=== PATIENT | male | born 1960 ===

== ENCOUNTER 2017-02-23 14:33 | Emergency (ER) | payer BC, OTHER ==
[2017-02-23 14:37] VITALS: BMI 21.6
[2017-02-23 14:41] VITALS: O2SAT 97
[2017-02-23] MEDS ORDERED: Sodium Chloride 0.9% 1,000 ML IV STA (14:57)
[2017-02-23] MEDS ORDERED: Morphine 2 mg/ml ISec IVP STA (14:57)
[2017-02-23 15:07] VITALS: TEMP 98.9
--- NOTE | 2017-02-23 15:08 | ED PDOC ---
Arrival/HPI - General Chief Complaint: Back Pain Time Seen by Provider: 02/23/17 14:42 Historian: Patient - History of Present Illness Narrative History of Present Illness (Text): 02/23/17 15:02 Shalom Alberts is a 56 year old male, with a history of nephrectomy, presents to the emergency department complaining of right inguinal hernia and pain associated to the area. States pain is worsened with movement and states he "can 't hold up his upper body." States he was evaluated for these complaints before and was informed he needed surgical repair. Patient unable to get surgery due to insurance issue. Also states he had 1 episode of nbnb vomit today morning. Denies any fever, chills, headache, dizziness, cheat pain, shortness of breath, abdominal pain, urinary symptoms, or any other complaints at this time. The patient was previously evaluated by Dr. Patterson and told he needs surgery. Time/Duration: Other (Tuesday ) Symptom Course: Worsening Severity Level: Mild Activities at Onset: Light Context: Home Past Medical History - Provider Review Nursing Documentation Reviewed: Yes - Infectious Disease Hx of Infectious Diseases: None - Cardiac Hx Cardiac Disorders: No - Pulmonary Hx Respiratory Disorders: Yes Hx Chronic Obstructive Pulmonary Disease (COPD): Yes - Neurological Hx Neurological Disorder: No - HEENT Hx HEENT Disorder: No - Renal Hx Renal Disorder: Yes Other/Comment: Colapsed Kidney. Right kidney removed. - Psychiatric Hx Anxiety: Yes Hx Substance Use: No - Surgical History Other/Comment: Right kidney removal. - Anesthesia Hx Anesthesia: Yes Hx Anesthesia Reactions: No Family/Social History - Physician Review Nursing Documentation Reviewed: Yes Family/Social History: No Known Family HX Smoking Status: Heavy Smoker > 10 Cigarettes Daily Hx Alcohol Use: No Hx Substance Use: No Allergies/Home Meds Allergies/Adverse Reactions: Allergies No Known Allergies Allergy (Verified 02/23/17 14:37) Review of Systems - Physician Review All systems were reviewed & negative as marked: Yes - Review of Systems Constitutional: Normal. absent: Fatigue, Fevers Eyes: Normal ENT: Normal Respiratory: Normal. absent: SOB, Cough, Sputum Cardiovascular: Normal. absent: Chest Pain, Palpitations Gastrointestinal: Other (r. inguinal hernia ). absent: Abdominal Pain, Diarrhea , Nausea, Vomiting Genitourinary Male: Normal. absent: Dysuria, Frequency Musculoskeletal: Back Pain Neurological: Normal. absent: Headache, Dizziness Physical Exam Vital Signs Reviewed: Yes Vital Signs Temp Pulse Resp BP Pulse Ox 02/23/17 16:15 89 18 114/75 97 02/23/17 15:07 98.9 F 02/23/17 14:40 98.0 F 95 H 21 112/77 97 Temperature: Afebrile Blood Pressure: Normal Pulse: Regular Respiratory Rate: Normal Appearance: Positive for: Well-Appearing, Non-Toxic, Comfortable Pain Distress: None Mental Status: Positive for: Alert and Oriented X 3 - Systems Exam Head: Present: Atraumatic, Normocephalic Pupils: Present: PERRL Conjunctiva: Present: Normal Mouth: Present: Moist Mucous Membranes Pharnyx: Present: Normal. No: ERYTHEMA, EXUDATE, TONSILS ENLARGED Respiratory/Chest: Present: Clear to Auscultation, Good Air Exchange. No: Respiratory Distress, Accessory Muscle Use Cardiovascular: Present: Regular Rate and Rhythm, Normal S1, S2. No: Murmurs Abdomen: Present: Normal Bowel Sounds. No: Tenderness, Distention, Peritoneal Signs Genitourinary Male: Present: Hernias (r. inguinal hernia is fully reducible; no erythem or warmth or tenderness). No: Testicle Tenderness, Penile Swelling, Erythema, Testicle Swelling Upper Extremity: Present: Normal Inspection. No: Cyanosis, Edema Lower Extremity: Present: Normal Inspection. No: Edema Neurological: Present: GCS=15, CN II-XII Intact, Speech Normal, Motor Func Grossly Intact, Normal Sensory Function Skin: Present: Warm, Dry, Normal Color. No: Rashes Psychiatric: Present: Alert, Oriented x 3, Normal Insight, Normal Concentration Medical Decision Making ED Course and Treatment: 02/23/17 15:12 Impression: A 56 year old male who presents to the emergency department complaining of right inguinal hernia and pain to the area. On exam, the hernia is fully reducible with no evidence of incarceration or strangulation. Plan: -- CT abdomen pelvis -- Labs -- Pepcid -- Morphine - IV Fluids -- Urinalysis -- Reassess and disposition Progress Notes: 02/23/17 15:59 CT abdomen pelvis reviewed: LOWER THORAX: Unremarkable. LIVER: Unremarkable. No gross lesion or ductal dilatation. GALLBLADDER AND BILE DUCTS: Unremarkable. PANCREAS: Unremarkable. No gross lesion or ductal dilatation. SPLEEN: Unremarkable. ADRENALS: There is a 1.8 cm low-density adrenal mass on the left consistent with an adenoma. KIDNEYS AND URETERS:There is a solitary left kidney. There is a rim calcified fluid collection presumably a hematoma in the right renal fossa measuring 4.4 x 4.7 x 6.8 cm. VASCULATURE: Unremarkable. No aortic aneurysm. BOWEL:Unremarkable. No obstruction. No gross mural thickening. APPENDIX: Unremarkable. Normal appendix. PERITONEUM: Unremarkable. No free fluid. No free air. LYMPH NODES: Unremarkable. No enlarged lymph nodes. BLADDER: Unremarkable. REPRODUCTIVE: Unremarkable. BONES: No acute fracture. OTHER FINDINGS: None. IMPRESSION: No evidence of inguinal hernia. No acute intra-abdominal findings 02/23/17 17:19 CT results are noted with no acute findings. The calcified fluid collection on the right side is likely a residual persistent finding post nephrectomy from years ago as discussed with radiologist. Labs are unremarkable. Patient with no vomiting here and site appears unremarkable and hernia is fully reducible. No acute findings today. Patient has seen Dr. Patterson in the past and will need to follow up again for surgery. - Lab Interpretations Lab Results: 02/23/17 15:45 02/23/17 15:45 Lab Results 02/23/17 16:30: Urine Color Yellow, Urine Appearance Clear, Urine pH 7.0, Ur Specific [place] <= 1.005, Urine Protein Negative, Urine Glucose (UA) Negative, Urine Ketones Negative, Urine Blood Negative, Urine Nitrate Negative, Urine Bilirubin Negative, Urine Urobilinogen 0.2, Ur Leukocyte Esterase Negative 02/23/17 15:45: Sodium 139, Potassium 4.4, Chloride 103, Carbon Dioxide 29, Anion Gap 11, BUN 9, Creatinine 0.9, Est GFR ( Amer) > 60, Est GFR (Non- Af Amer) > 60, Random Glucose 91, Calcium 9.4, Total Bilirubin 0.5, AST 22, ALT 28, Alkaline Phosphatase 105, Total Protein 6.8, Albumin 4.0, Globulin 2.8, Albumin/Globulin Ratio 1.4, Amylase 107, Lipase 172 02/23/17 15:45: PT 10.9, INR 1.01, APTT 32.6 H 02/23/17 15:45: WBC 7.1, RBC 5.07, Hgb 16.4, Hct 47.3, MCV 93.3, MCH 32.3, MCHC 34.7, RDW 13.1, Plt Count 211, MPV 10.9, Gran % 61.2, Lymph % (Auto) 26.2, [place] % (Auto) 7.1 H, Eos % (Auto) 4.5, Baso % (Auto) 1.0, Gran # 4.32, Lymph # 1.9, [place] # 0.5, Eos # 0.3, Baso # 0.07 I have reviewed the lab results: Yes - RAD Interpretation Radiology Orders: 02/23/17 14:57 ABD & PELVIS W/O PO OR IV CONT [CT] Stat Material Control Clerk: Radiologist - Medication Orders Current Medication Orders: Discontinued Medications Famotidine (Pepcid) 20 mg IVP STAT STA Stop: 02/23/17 14:58 Last Admin: 02/23/17 15:48 Dose: 20 mg Sodium Chloride (Sodium Chloride 0.9%) 1,000 mls @ 1,000 mls/hr IV .Q1H STA Stop: 02/23/17 15:56 Last Admin: 02/23/17 15:49 Dose: 1,000 mls/hr Morphine Sulfate (Morphine) 2 mg IVP STAT STA Stop: 02/23/17 14:58 Last Admin: 02/23/17 15:48 Dose: 2 mg - Scribe Statement The provider has reviewed the documentation as recorded by the Michael Hernández Provider Attestation: Provider Scribe Attestation: All medical record entries made by the Randyibmaisha were at my direction and personally dictated by me. I have reviewed the chart and agree that the record accurately reflects my personal performance of the history, physical exam, medical decision making, and the department course for this patient. I have also personally directed, reviewed, and agree with the discharge instructions and disposition. Disposition/Present on Arrival - Present on Arrival Any Indicators Present on Arrival: No History of DVT/PE: No History of Uncontrolled Diabetes: No Urinary Catheter: No History of Decub. Ulcer: No History Surgical Site Infection Following: None - Disposition Have Diagnosis and Disposition been Completed?: Yes Diagnosis: Right inguinal hernia Disposition: HOME/ ROUTINE Disposition Time: 17:20 Patient Plan: Discharge Condition: GOOD Discharge Instructions (ExitCare): Inguinal Hernia (ED) Additional Instructions: Avoid heavy lifting. Take the tramadol as prescribed. Follow up with Dr. Patterson for surgery. Also recommend MRI of the lumbar spine, to be arranged by your primary care doctor (or the medical clinic) for your back pain. Return to the emergency department if any new concerning symptoms. Prescriptions: Baclofen [Lioresal] 1 tab PO TID PRN #15 tab PRN Reason: Pain, Moderate (4-7) traMADol [Ultram] 1 tab PO Q8H PRN #15 tab PRN Reason: Pain, Severe (8-10) Referrals: Miko Patterson MD [Staff Provider] - Follow up with primary [facility] [place] [Outside] - Follow up with primary Forms: [employer] (H[place]er)
--- NOTE | 2017-02-23 15:47 | CT ---
PROCEDURE: CT Abdomen and Pelvis without intravenous contrast HISTORY: R inguinal hernia, back pain COMPARISON: None. TECHNIQUE: Without contrast.. Contrast Dose: Radiation dose: Total exam DLP = 345 mGy-cm. This CT exam was performed using one or more of the following dose reduction techniques: Automated exposure control, adjustment of the mA and/or kV according to patient size, and/or use of iterative reconstruction technique. FINDINGS: LOWER THORAX: Unremarkable. LIVER: Unremarkable. No gross lesion or ductal dilatation. GALLBLADDER AND BILE DUCTS: Unremarkable. PANCREAS: Unremarkable. No gross lesion or ductal dilatation. SPLEEN: Unremarkable. ADRENALS: There is a 1.8 cm low-density adrenal mass on the left consistent with an adenoma. KIDNEYS AND URETERS: There is a solitary left kidney. There is a rim calcified fluid collection presumably a hematoma in the right renal fossa measuring 4.4 x 4.7 x 6.8 cm. VASCULATURE: Unremarkable. No aortic aneurysm. BOWEL: Unremarkable. No obstruction. No gross mural thickening. APPENDIX: Unremarkable. Normal appendix. PERITONEUM: Unremarkable. No free fluid. No free air. LYMPH NODES: Unremarkable. No enlarged lymph nodes. BLADDER: Unremarkable. REPRODUCTIVE: Unremarkable. BONES: No acute fracture. OTHER FINDINGS: None. IMPRESSION: No evidence of inguinal hernia. No acute intra-abdominal findings
[2017-02-23 16:04] LABS: BASO # 0.07 K/mm3 (0.0-2.0); EOS # 0.3 (0.0-0.7); EOS % 4.5 % (1.5-5.0); GRAN # 4.32 (1.4-6.5); GRAN % 61.2 % (50.0-68.0); HEMOGLOBIN 16.4 g/dL (14.0-18.0); LYMPH # 1.9 (1.2-3.4); LYMPH % 26.2 % (22.0-35.0); MEAN CELL VOLUME 93.3 fl (80.0-105.0); MEAN CORPUSCULAR HEMOGLOBIN 32.3 pg (25.0-35.0); MEAN CORPUSCULAR HGB CONC 34.7 g/dl (31.0-37.0); MEAN PLATELET VOLUME 10.9 fl (7.0-11.0); MONO # 0.5 (0.1-0.6); MONO % 7.1 % (1.0-6.0); PLATELET COUNT 211 10^3/uL (120.0-450.0); RBC 5.07 10^6/uL (3.5-6.1); RED CELL DISTRIBUTION WIDTH 13.1 % (11.5-14.5); WHITE BLOOD COUNT 7.1 10^3/ul (4.5-11.0)
[2017-02-23 16:15] VITALS: BP 114/75; PULSE 89; RESP 18
[2017-02-23 16:15] LABS: ALB/GLOB RATIO 1.4 (1.1-1.8); ALT/SGPT 28 U/L (7-56); AMYLASE 107 U/L (35-125); AST/SGOT 22 U/L (15-59); BLOOD UREA NITROGEN 9 mg/dL (7-21); CALCIUM 9.4 mg/dL (8.4-10.5); GFR AFRICAN-AMERICAN > 60; GFR NON-AFRICAN AMERICAN > 60; LIPASE 172 U/L (23-300)
[2017-02-23 16:25] LABS: INR 1.01 (0.93-1.08); PARTIAL THROMBOPLASTIN TIME 32.6 Seconds (23.7-30.8); PROTHROMBIN TIME 10.9 Seconds (9.9-11.8)
[2017-02-23 16:48] LABS: URINE BILIRUBIN NEGATIVE (NEGATIVE); URINE BLOOD NEGATIVE (NEGATIVE); URINE GLUCOSE (UA) NEGATIVE (NEGATIVE); URINE LEUKOCYTE ESTERASE NEGATIVE Leu/uL (NEGATIVE); URINE NITRATE NEGATIVE (NEGATIVE); URINE PROTEIN NEGATIVE mg/dL (<30 mg/dL); URINE UROBILINOGEN 0.2 E.U./dL (<1 E.U./dL)
[2017-02-23 16:58] LABS: URINE APPEARANCE CLEAR (CLEAR); URINE COLOR YELLOW (YELLOW)
== END 2017-02-23 17:48 | disposition home or self-care (01) ==
LOC: ED 14:33
DX: K40.90 Unilateral inguinal hernia, without obstruction or gangrene, not specified as recurrent (principal)
CPT/HCPCS: 74176; 80053; 81003; 82150; 83690; 85025; 85610; 85730; 96374; 96375; 99282; J2270; J7040

== ENCOUNTER 2018-02-06 15:42 | Observation (INO) | payer OTHER ==
[2018-02-06] MEDS ORDERED: Oxycodone/Acetaminophen 5/325 mg Tab PO STA (16:11)
--- NOTE | 2018-02-06 16:24 | ED PDOC ---
Arrival/HPI - General Chief Complaint: Trauma Time Seen by Provider: 02/06/18 15:53 Historian: Patient - History of Present Illness Narrative History of Present Illness (Text): 02/06/18 16:13 57yo male with pmhx of COPD bib EMS for sharp/severe left sided ribs pain s/p trauma. States he fell off a chair while paining and the posterior rib hit the edge of a tub. Reports worsening pain with deep inspiration. Denies hitting his head anywhere. Denies dizziness, visual changes, any other complaint. Past Medical History - Provider Review Nursing Documentation Reviewed: Yes - Infectious Disease Hx of Infectious Diseases: None - Cardiac Hx Cardiac Disorders: No - Pulmonary Hx Respiratory Disorders: Yes Hx Chronic Obstructive Pulmonary Disease (COPD): Yes - Neurological Hx Neurological Disorder: No - HEENT Hx HEENT Disorder: No - Renal Hx Renal Disorder: Yes Other/Comment: R NEPHRECTOMY - Endocrine/Metabolic Hx Endocrine Disorders: No - Hematological/Oncological Hx Blood Disorders: No - Integumentary Hx Dermatological Disorder: No - Musculoskeletal/Rheumatological Hx Musculoskeletal Disorders: No - Gastrointestinal Hx Gastrointestinal Disorders: No - Genitourinary/Gynecological Hx Genitourinary Disorders: No - Psychiatric Hx Psychophysiologic Disorder: Yes Hx Anxiety: Yes Hx Substance Use: No - Surgical History Other/Comment: R NEPHRECTOMY - Anesthesia Hx Anesthesia: Yes Hx Anesthesia Reactions: No Family/Social History - Physician Review Nursing Documentation Reviewed: Yes Family/Social History: Unknown Family HX Smoking Status: Heavy Smoker > 10 Cigarettes Daily Hx Alcohol Use: No Hx Substance Use: No Allergies/Home Meds Allergies/Adverse Reactions: Allergies No Known Allergies Allergy (Verified 02/06/18 16:00) Home Medications: Home Meds Medication Instructions Recorded Confirmed No Known Home Med 02/06/18 02/06/18 Review of Systems - Physician Review All systems were reviewed & negative as marked: Yes - Review of Systems Constitutional: Normal Eyes: Normal ENT: Normal Respiratory: Normal Cardiovascular: Normal Gastrointestinal: Normal Genitourinary Male: Normal Musculoskeletal: Arthralgias (LEft ribs) Skin: Normal Neurological: Normal Endocrine: Normal Hemo/Lymphatic: Normal Psychiatric: Normal Physical Exam Vital Signs Reviewed: Yes Vital Signs Temp Pulse Resp BP Pulse Ox 02/06/18 16:01 97.1 F L 56 L 20 112/63 97 Temperature: Afebrile Blood Pressure: Normal Pulse: Regular Respiratory Rate: Normal Appearance: Positive for: Well-Appearing, Non-Toxic, Comfortable Pain Distress: None Mental Status: Positive for: Alert and Oriented X 3 - Systems Exam Head: Present: Atraumatic, Normocephalic Pupils: Present: PERRL Extroacular Muscles: Present: EOMI Conjunctiva: Present: Normal Mouth: Present: Moist Mucous Membranes Neck: Present: Normal Range of Motion Respiratory/Chest: Present: Clear to Auscultation, Good Air Exchange, Tender to Palpation (Left posterior ribs). No: Respiratory Distress, Accessory Muscle Use , Wheezes, Decreased Breath Sounds, Rales, Retracting, Rhonchi Cardiovascular: Present: Regular Rate and Rhythm, Normal S1, S2. No: Murmurs Abdomen: No: Tenderness, Distention, Peritoneal Signs Back: Present: Paraspinal Tenderness (Left paraspinous tenderness). No: Midline Tenderness, Pain with Leg Raise Upper Extremity: Present: Normal Inspection. No: Cyanosis, Edema Lower Extremity: Present: Normal Inspection. No: Edema Neurological: Present: GCS=15, CN II-XII Intact, Speech Normal Skin: Present: Warm, Dry, Normal Color. No: Rashes Psychiatric: Present: Alert, Oriented x 3, Normal Insight, Normal Concentration Medical Decision Making ED Course and Treatment: 02/06/18 19:52 Pt presented for stated history. His pain was controlled with medication, although he still complained of mild pain. Lab was noted with leukocytosis. Source not known at this time. He states he have not taken any medication in 2weeks. Blood culture, ua, urine culture, VBG added Broad spectrum abx ordered Rib/Cxr FINDINGS: Lungs: No consolidation. Pleural space: See Bones/joints Finding. Heart/Mediastinum: Normal. No cardiomegaly. Bones/joints: There appear to be fractures of the left T7-T9 ribs laterally with mild displacement. Some volume loss in the left base. No identifiable pneumothorax. IMPRESSION: There appear to be fractures of the left T7-T9 ribs laterally with mild displacement. Some volume loss in the left base. No identifiable pneumothorax. 02/06/18 21:15 Pt was admitted secondary to the leukocysotis and persistent pain from the ribs fracture. Case was DW Dr. Christian and he accepted pt for admission. He requested Chest CT and it was ordered. Result and plan was DW the pt and he agreed. - Lab Interpretations Lab Results: 02/06/18 17:50 02/06/18 17:50 Lab Results 02/06/18 17:50: PT 11.8, INR 1.03, APTT 33.0 02/06/18 17:50: Sodium 141, Potassium 4.6, Chloride 102, Carbon Dioxide 31, Anion Gap 13, BUN 13, Creatinine 0.9, Est GFR ( Amer) > 60, Est GFR (Non- Af Amer) > 60, Random Glucose 130 H, Calcium 9.6, Total Bilirubin 0.6, AST 21, ALT 37, Alkaline Phosphatase 126, Total Protein 7.1, Albumin 4.1, Globulin 3.0, Albumin/Globulin Ratio 1.4 02/06/18 17:50: WBC 22.5 H D, RBC 5.14, Hgb 16.7, Hct 47.8, MCV 93.0, MCH 32.5, MCHC 34.9, RDW 12.8, Plt Count 235, MPV 11.0, Gran % 86.6 H, Lymph % (Auto) 6.0 L, [place] % (Auto) 6.5 H, Eos % (Auto) 0.7 L, Baso % (Auto) 0.2, Gran # 19.49 H, Lymph # (Auto) 1.3, [place] # (Auto) 1.5 H, Eos # (Auto) 0.2, Baso # (Auto) 0.05 - RAD Interpretation Radiology Orders: 02/06/18 16:10 RIBS LEFT & PA CHEST [RAD] Stat 02/06/18 16:11 LS SPINE WITH OBL > 18 YRS OLD [RAD] Stat - Medication Orders Current Medication Orders: Acetaminophen (Tylenol 325mg Tab) 650 mg PO Q6H PRN PRN Reason: Pain, moderate (4-7) Famotidine (Pepcid) 20 mg PO BID ANOOP Vancomycin HCl (Vancomycin 1gm) 1 gm in 250 mls @ 167 mls/hr IVPB STAT STA PRN Reason: Protocol Stop: 02/06/18 21:40 Discontinued Medications Albuterol/Ipratropium (Duoneb 3 Mg/0.5 Mg (3 Ml) Ud) 3 ml IH STAT STA Stop: 02/06/18 17:25 Last Admin: 02/06/18 17:42 Dose: 3 ml Piperacillin Sod/Tazobactam Sod (Zosyn 3.375 In Ns 100ml) 100 mls @ 200 mls/hr IVPB STAT STA PRN Reason: Protocol Stop: 02/06/18 20:40 Ketorolac Tromethamine (Toradol) 30 mg IVP STAT STA Stop: 02/06/18 17:25 Last Admin: 02/06/18 17:53 Dose: 30 mg MAR Pain Assessment Document 02/06/18 17:53 MS (Rec: 02/06/18 17:54 [id number] Pain Reassessment Is this a pain reassessment? No Sleep Is patient sleeping during reassessment? No Presence of Pain Presence of Pain Yes Pain Scale Used Pain Scale Used Numeric Location Pain Location Body Site Back Description Description Constant Intensity of Pain at present 10 Pain Behavior Withdrawal from Touch IVP Administration Document 02/06/18 17:53 MS (Rec: 02/06/18 17:54 [email or web address] Charges for Administration # of IVP Administrations 1 Lorazepam (Ativan) 1 mg IVP ONCE ONE PRN Reason: Protocol Stop: 02/06/18 17:27 Last Admin: 02/06/18 17:54 Dose: 1 mg IVP Administration Document 02/06/18 17:54 MS (Rec: 02/06/18 17:54 [id number] Charges for Administration # of IVP Administrations 1 Oxycodone/Acetaminophen (Percocet 5/325 Mg Tab) 1 tab PO STAT STA Stop: 02/06/18 16:12 Last Admin: 02/06/18 16:49 Dose: 1 tab MAR Pain Assessment Document 02/06/18 16:49 MS (Rec: 02/06/18 16:52 [id number] Pain Reassessment Is this a pain reassessment? No Sleep Is patient sleeping during reassessment? No Presence of Pain Presence of Pain Yes Pain Scale Used Pain Scale Used Numeric Location Left, Right or Bilateral Left Pain Location Body Site Back Description Description Constant Intensity of Pain at present 10 Pain Behavior Irritability Withdrawal from Touch Disposition/Present on Arrival - Present on Arrival Any Indicators Present on Arrival: No History of DVT/PE: No History of Uncontrolled Diabetes: No Urinary Catheter: No History of Decub. Ulcer: No History Surgical Site Infection Following: None - Disposition Have Diagnosis and Disposition been Completed?: Yes Diagnosis: Ribs, multiple fractures, Leukocytosis Disposition: HOSPITALIZED Disposition Time: 20:35 Patient Plan: Admission Condition: FAIR
[2018-02-06] MEDS ORDERED: Albuterol-Ipratrop 3 mg / 0.5 (3 ml) UD ONE (17:23)
[2018-02-06] MEDS ORDERED: Albuterol-Ipratrop 3 mg / 0.5 (3 ml) UD IH STA (17:24)
[2018-02-06 18:07] LABS: BASO # 0.05 K/mm3 (0.0-2.0); BASO % 0.2 % (0.0-3.0); EOS # 0.2 (0.0-0.7); EOS % 0.7 % (1.5-5.0); GRAN # 19.49 (1.4-6.5); GRAN % 86.6 % (50.0-68.0); HEMOGLOBIN 16.7 g/dL (14.0-18.0); LYMPH # 1.3 (1.2-3.4); MEAN CORPUSCULAR HEMOGLOBIN 32.5 pg (25.0-35.0); MEAN CORPUSCULAR HGB CONC 34.9 g/dl (31.0-37.0); MONO # 1.5 (0.1-0.6); MONO % 6.5 % (1.0-6.0); RBC 5.14 10^6/uL (3.5-6.1); RED CELL DISTRIBUTION WIDTH 12.8 % (11.5-14.5); WHITE BLOOD COUNT 22.5 10^3/ul (4.5-11.0)
[2018-02-06 18:13] LABS: INR 1.03
[2018-02-06 18:17] LABS: ALB/GLOB RATIO 1.4 (1.1-1.8); ALBUMIN 4.1 g/dL (3.0-4.8); ALT/SGPT 37 U/L (7-56); AST/SGOT 21 U/L (17-59); BLOOD UREA NITROGEN 13 mg/dL (7-21); CALCIUM 9.6 mg/dL (8.4-10.5); GFR AFRICAN-AMERICAN > 60; GFR NON-AFRICAN AMERICAN > 60
[2018-02-06] MEDS ORDERED: Vancomycin 1gm in NS 250ml 1 GM/250 ML BAG IVPB STA (20:11)
[2018-02-06] MEDS ORDERED: Piperacillin/Tazobact 3.375 gm 100 ML IVPB STA (20:11)
[2018-02-06 21:03] LABS: URINE BILIRUBIN SMALL (NEGATIVE); URINE BLOOD NEGATIVE (NEGATIVE); URINE GLUCOSE (UA) NEGATIVE (NEGATIVE); URINE LEUKOCYTE ESTERASE NEGATIVE Leu/uL (NEGATIVE); URINE PROTEIN 100 mg/dL (<30 mg/dL)
[2018-02-06 21:04] LABS: URINE APPEARANCE CLEAR (CLEAR); URINE COLOR AMBER (YELLOW)
[2018-02-06 21:41] LABS: VENOUS BLOOD GAS BASE EXCESS 2.5 mmol/L (0.0-2.0); VENOUS BLOOD GAS PO2 37 mm/Hg (30-55); VENOUS BLOOD PH 7.35 (7.32-7.43)
--- NOTE | 2018-02-06 22:06 | CP.PCM.HP ---
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 He fell backwards on his left side and hit the tub. He had felt severe pain in his ribs since the fall that is worsened with deep breathing and movement. He reports no loss of consciousnesses or penetrating trauma. He smokes 1ppd x 46 years, and smokes marijuana regularly for anxiety attacks. He reports previous difficulty breathing due to chronic COPD for which he takes symbicort as needed about every 2 days. He feels his COPD is uncontrolled and reports he doesn't take his meds routinely because he can't afford them due to lack of insurance. He also complains of discomfort from a R inguinal hernia that he had noticed about 1 yr previously. He reports cough, excessive non- productive sputum. He denies fevers, chills, headache, chest pain, shortness of breath, nausea, vomiting, dysuria, constipation or diarrhea. PMD: none Pmhx: COPD All: NKDA Surghx: R Nephrectomy (1984) Famhx: Meds: Symbicort, Flovent, Albuterol, Chantix Socialhx: 46 pack year cigarette smoker. Marijuana. Recovered alcoholic. Previously worked in [employer], currently disabled. Chest X-ray: There appear to be fractures of the left T7-T9 ribs laterally with mild displacement. Some volume loss in the left base. No identifiable pneumothorax. Present on Admission - Present on Admission Any Indicators Present on Admission: No Review of Systems - Review of Systems All systems: reviewed and no additional remarkable complaints except (as per HPI ) Past Patient History - Infectious Disease Hx of Infectious Diseases: None - Past Social History Smoking Status: Heavy Smoker > 10 Cigarettes Daily Drugs: Cannabis - CARDIAC Hx Cardiac Disorders: No - PULMONARY Hx Respiratory Disorders: Yes Hx Chronic Obstructive Pulmonary Disease (COPD): Yes - NEUROLOGICAL Hx Neurological Disorder: No - HEENT Hx HEENT Problems: No - RENAL Hx Chronic Kidney Disease: Yes Other/Comment: R NEPHRECTOMY - ENDOCRINE/METABOLIC Hx Endocrine Disorders: No - HEMATOLOGICAL/ONCOLOGICAL Hx Blood Disorders: No - INTEGUMENTARY Hx Dermatological Problems: No - MUSCULOSKELETAL/RHEUMATOLOGICAL Hx Musculoskeletal Disorders: No - GASTROINTESTINAL Hx Gastrointestinal Disorders: No - GENITOURINARY/GYNECOLOGICAL Hx Genitourinary Disorders: No - PSYCHIATRIC Hx Psychophysiologic Disorder: Yes Hx Anxiety: Yes Hx Substance Use: No - SURGICAL HISTORY Other/Comment: R NEPHRECTOMY - ANESTHESIA Hx Anesthesia: Yes Hx Anesthesia Reactions: No Meds Allergies/Adverse Reactions: Allergies Allergy/AdvReac Type Severity Reaction Status Date / Time No Known Allergies Allergy Verified 02/06/18 16:00 Physical Exam - Constitutional Appears: Well, Non-toxic, No Acute Distress - Head Exam Head Exam: NORMAL INSPECTION - Eye Exam Eye Exam: Normal appearance - ENT Exam ENT Exam: Mucous Membranes Moist - Neck Exam Neck exam: Positive for: Normal Inspection. Negative for: Tenderness - Respiratory Exam Respiratory Exam: Chest Wall Tenderness, Clear to Auscultation Bilateral, NORMAL BREATHING PATTERN - Cardiovascular Exam Cardiovascular Exam: REGULAR RHYTHM, +S1, +S2 - GI/Abdominal Exam GI & Abdominal Exam: Normal Bowel Sounds, Soft. absent: Tenderness Additional comments: Nephrectomy scar noted along R flank - Extremities Exam Extremities exam: Positive for: normal inspection. Negative for: calf tenderness, tenderness - Back Exam Back exam: tenderness (to palpation along L T7-T9) - Neurological Exam Neurological exam: Alert, Oriented x3 - Psychiatric Exam Psychiatric exam: Normal Affect, Normal Mood - Skin Skin Exam: Dry, Erythema (Along L posterior thoracic region), Intact Results - Vital Signs Recent Vital Signs: Last Vital Signs Temp 97.1 F L 02/06/18 16:01 Pulse 56 L 02/06/18 16:01 Resp 20 02/06/18 16:01 BP 112/63 02/06/18 16:01 Pulse Ox 97 02/06/18 16:01 - Labs Result Diagrams: 02/06/18 17:50 02/06/18 17:50 Labs: Laboratory Results - last 24 hr 02/06/18 20:30 Urine Color Meli Urine Appearance Clear Urine pH 6.0 Ur Specific [place] >= 1.030 Urine Protein 100 H Urine Glucose (UA) Negative Urine Ketones Trace H Urine Blood Negative Urine Nitrate Negative Urine Bilirubin Small H Urine Urobilinogen 1.0 H Ur Leukocyte Esterase Negative Urine RBC TEST NOT PERFORMED Urine WBC 5 - 10 Ur Epithelial Cells 10 - 12 Assessment & Plan - Assessment and Plan (Free Text) Assessment: 57 y/o M w pmhx COPD, heavy tobacco use, anxiety, L rib fractures admitted for leukocytosis Plan: 1. Leukocytosis - Stress demargination vs. Glucocorticoid induced demargination - f/u urine, blood cultures 2. COPD - Duoneb q6h. Pulmicort 0.5mg q12 - f/u chest CT 3. L Rib fractures - Chest X-ray: Fractures L T7-T9 ribs laterally with mild displacement. No identifiable pneumothorax. - Percocet for pain control - PT/OT eval 4. Tobacco use disorder - Nicoderm patch daily 5. Anxiety - Psychiatry consult. F/u recs DVT ppx: Heparin 5,000mg q 12 GI ppx: famotidine Diet: Reg diet Activity: OOB as tolerated <Milan Christian P - Last Filed: 02/07/18 04:26> Results - Vital Signs Recent Vital Signs: Last Vital Signs Temp 97.1 F L 02/07/18 00:14 Pulse 72 02/07/18 00:14 Resp 18 02/07/18 00:14 BP 138/94 H 02/07/18 00:14 Pulse Ox 96 02/06/18 23:02 - Labs Result Diagrams: 02/06/18 17:50 02/06/18 17:50 Labs: Laboratory Results - last 24 hr 02/06/18 02/07/18 20:30 00:35 pO2 37 VBG pH 7.38 VBG pCO2 51.0 VBG HCO3 30.2 H VBG Total CO2 31.8 H VBG O2 Sat (Calc) 78.4 H VBG Base Excess 3.9 H VBG Potassium 4.0 Sodium 137.0 Chloride 103.0 Glucose 119 H Lactate 1.4 FiO2 21.0 Venous Blood Potassium 4.0 Urine Color Meli Urine Appearance Clear Urine pH 6.0 Ur Specific [place] >= 1.030 Urine Protein 100 H Urine Glucose (UA) Negative Urine Ketones Trace H Urine Blood Negative Urine Nitrate Negative Urine Bilirubin Small H Urine Urobilinogen 1.0 H Ur Leukocyte Esterase Negative Urine RBC TEST NOT PERFORMED Urine WBC 5 - 10 Ur Epithelial Cells 10 - 12 Attending/Attestation - Attestation I have personally seen and examined this patient.: Yes I have fully participated in the care of the patient.: Yes I have reviewed all pertinent clinical information: Yes Notes (Text): 02/07/18 04:22 Fall causing left rib fractures posteriorly H/o COPD active tobacco abuse, non compliant with meds due to lack of insurance and still smoking 1PPD H/o single kidney, right removed due to bleeding in 1983 Right groin hernia due to chronic cough. Plan Pain control CT to check any secondary contusion, bleeding PT/OT Social service to proved meds for copd Psych consult for anxiety GI/DVT prophylaxis pulraven tejada Counselled about tobacco cessation, but patient still not ready to quit
[2018-02-07 00:27] VITALS: BMI 23.7
[2018-02-07 01:34] LABS: VENOUS BLOOD GAS BASE EXCESS 3.9 mmol/L (0.0-2.0); VENOUS BLOOD GAS PO2 37 mm/Hg (30-55); VENOUS BLOOD PH 7.38 (7.32-7.43)
[2018-02-07] MEDS: Budesonide 0.5 mg/2 ml Inhal Susp UD IH SCH ×2 (07:12→19:40)
[2018-02-07] MEDS: Arformoterol 15 mcg/2 ml Inh Sol IH SCH ×2 (07:12→19:40)
[2018-02-07] MEDS: Albuterol-Ipratrop 3 mg / 0.5 (3 ml) UD IH SCH ×4 (07:13→19:40)
[2018-02-07 07:18] LABS: BASO # 0.07 K/mm3 (0.0-2.0); BASO % 0.7 % (0.0-3.0); EOS # 0.7 (0.0-0.7); EOS % 7.2 % (1.5-5.0); GRAN # 5.96 (1.4-6.5); GRAN % 61.1 % (50.0-68.0); HEMOGLOBIN 14.7 g/dL (14.0-18.0); LYMPH % 20.1 % (22.0-35.0); MEAN CELL VOLUME 91.7 fl (80.0-105.0); MEAN CORPUSCULAR HEMOGLOBIN 31.4 pg (25.0-35.0); MEAN CORPUSCULAR HGB CONC 34.3 g/dl (31.0-37.0); MEAN PLATELET VOLUME 10.9 fl (7.0-11.0); MONO # 1.1 (0.1-0.6); MONO % 10.9 % (1.0-6.0); RBC 4.68 10^6/uL (3.5-6.1); WHITE BLOOD COUNT 9.8 10^3/ul (4.5-11.0)
[2018-02-07 07:19] LABS: INR 1.14
[2018-02-07 07:50] LABS: ALB/GLOB RATIO 1.3 (1.1-1.8); ALBUMIN 3.6 g/dL (3.0-4.8); ALT/SGPT 26 U/L (7-56); AST/SGOT 22 U/L (17-59); BLOOD UREA NITROGEN 14 mg/dL (7-21); GFR AFRICAN-AMERICAN > 60; GFR NON-AFRICAN AMERICAN > 60
--- NOTE | 2018-02-07 08:44 | CP.PCM.PN ---
Objective - Vital Signs/Intake and Output Vital Signs (last 24 hours): Temp Pulse Resp BP Pulse Ox 98.4 F 70 18 128/75 95 02/07/18 07:31 02/07/18 07:31 02/07/18 07:31 02/07/18 07:31 02/07/18 07:31 Intake and Output: 02/07/18 02/07/18 06:59 18:59 Intake Total 490 Output Total 400 Balance 90 - Medications Medications: Current Medications Acetaminophen (Tylenol 325mg Tab) 650 mg PO Q6H PRN PRN Reason: Pain, moderate (4-7) Albuterol/Ipratropium (Duoneb 3 Mg/0.5 Mg (3 Ml) Ud) 3 ml IH [id number] [facility] Last Admin: 02/07/18 07:20 Dose: Not Given Arformoterol Tartrate (Brovana) 15 mcg IH [id number] [facility] Last Admin: 02/07/18 07:12 Dose: 15 mcg Budesonide (Pulmicort Respules) 0.5 mg IH [id number] [facility] Last Admin: 02/07/18 07:12 Dose: 0.5 mg Famotidine (Pepcid) 20 mg PO BID [facility] Heparin Sodium (Porcine) (Heparin) 5,000 units SC Q12 ANOOP PRN Reason: Protocol Last Admin: 02/07/18 04:05 Dose: Not Given Nicotine (Nicoderm Cq) 1 patch TD DAILY [facility] Oxycodone/Acetaminophen (Percocet 5/325 Mg Tab) 1 tab PO Q4H PRN PRN Reason: Pain, moderate (4-7) Stop: 02/09/18 22:17 - Labs Labs: 02/07/18 06:30 02/07/18 06:30 PT 13.1 SECONDS 02/07/18 06:30 INR 1.14 02/07/18 06:30 APTT 30.2 Seconds 02/07/18 06:30
--- NOTE | 2018-02-07 08:55 | CT ---
Date of service: 02/07/2018 PROCEDURE: CT Chest without contrast HISTORY: multiple rib fracture COMPARISON: PA chest with left rib rib series 02/06/[address] abdomen without contrast dated 02/23/2017 TECHNIQUE: Contiguous axial images were obtained through the chest without intravenous contrast enhancement. Sagittal and coronal reconstructions were performed. Radiation dose (DLP): 370 mGy-cm. This CT exam was performed using one or more of the following dose reduction techniques: Automated exposure control, adjustment of the mA and/or kV according to patient size, and/or use of iterative reconstruction technique. FINDINGS: LUNGS: Biapical blebs present. Left lower lobe posterior compressive atelectasis inferred contiguous with the left pleural effusion which in turn is contiguous with left rib fractures. Minimal dependent atelectatic like changes posterior right lung base. Much less than those on the left. Visualized airway clear. MEDIASTINUM: Thoracic aorta with calcification. . No aneurysm. Normal sized heart. Main pulmonary artery unremarkable. No vascular congestion. No lymphadenopathy. PLEURA: Left pleural effusion. Tiny left pneumothorax pockets seen at left lung base antro medial and sliver like left lateral lung base (series 3, image 101 and image 92 bordering the left rib fractures, posterior left subcutaneous emphysema. BONES: The left 8th and 9th posterior to post rolled lateral ribs which are are displaced. A much smaller left posterior 10th rib fracture also suggested. UPPER ABDOMEN: A 1 cm anterolateral exophytic left renal cortical hypodensity appearing in Hounsfield units appears slightly larger than prior exam. No normal-appearing right kidney is seen. Instead a rimmed calcification form in shape is noted this is previously interpreted as a hematoma in the right renal fossa size is similar proximally 4 to 7 cm in size. Clinical correlation with past medical history prior to 2017 recommended. The left adrenal hypodense mass compatible with an adenoma in appearance this now measures 2.2 cm. OTHER FINDINGS: None. IMPRESSION: Multiple posterior left displaced rib fractures with contiguous mild moderate left pleural blood containing effusion. Tiny left basal pneumothorax. Trace posterior left subcutaneous emphysema Bordering the left pleural fluid, compressive atelectatic changes inferred. Interval increased size conspicuity of an exophytic left renal hypodense mass as above. Renal ultrasound recommended. Normal right kidney- as detailed above. Correlate clinically Similar benign-appearing left adrenal adenoma.
--- NOTE | 2018-02-07 10:41 | RAD ---
Date of service: 02/06/2018 PROCEDURE: Radiographs of the Chest and Left Ribs. HISTORY: rib pain s/p trauma COMPARISON: None available. TECHNIQUE: Frontal radiograph of the chest and multiple oblique radiographs of the left ribs were obtained. FINDINGS: LEFT RIBS: Fractures are seen of the left lateral aspect of the T7 through 9 ribs. LUNGS: Clear. PLEURA: No pneumothorax or pleural fluid. CARDIOVASCULAR: Normal sized heart. No pulmonary vascular congestion. OTHER FINDINGS: The report concurs with the preliminary [facility] report IMPRESSION: Fractures are seen of the left lateral aspect of the T7 through 9 ribs.
--- NOTE | 2018-02-07 10:54 | RAD ---
Date of service: 02/06/2018 PROCEDURE: Radiographs of the Lumbar Spine. HISTORY: back pain s/p trauma COMPARISON: 08/18/2013 FINDINGS: BONES: There is a chronic mild compression deformity of L1. There is disc degeneration at L1-2 DISC SPACES: Unremarkable. OTHER FINDINGS: None. IMPRESSION: There is a chronic mild compression deformity of L1. There is disc degeneration at L1-2
[2018-02-07] MEDS: Oxycodone/Acetaminophen 5/325 mg Tab PO PRN ×2 (12:43→20:24)
--- NOTE | 2018-02-07 15:05 | US ---
Date of service: 02/07/2018 PROCEDURE: Ultrasound of the Kidneys HISTORY: ?renal mass COMPARISON: 03/08/2016. TECHNIQUE: Sonogram of the kidneys. FINDINGS: RIGHT KIDNEY: Removed in 1983. There is a chronic hematoma this area measuring 6 x 4 x 5.5 cm LEFT KIDNEY: Measures: 13.3 x 6.3 x 8.4 cm. Normal in size, contour and echogenicity. No stone, solid mass lesion or hydronephrosis visualized. OTHER FINDINGS: None. IMPRESSION: Unremarkable renal sonogram.
--- NOTE | 2018-02-07 15:07 | CP.PCM.PN ---
<Kristin Gomez - Last Filed: 02/07/18 20:49> Subjective - Date & Time of Evaluation Date of Evaluation: 02/07/18 Time of Evaluation: 15:00 - Subjective Subjective: Kristin Gomez PGY-[address] Diana Donis Mr. Valentine was seen today at bedside. He reported continuation of his left sided rib pain, which he rated a 10 out of 10. He reported worsening of the pain upon breathing, coughing, and movement. Patient also complains of shortness of breath, which he attributes to his COPD and claims is present at baseline. He also complains of discomfort with his right inguinal hernia. Pt denies headache, chest pain, palpitations, dizziness, abdominal pain, nausea, vomiting, diarrhea, or dysuria. Objective - Vital Signs/Intake and Output Vital Signs (last 24 hours): Temp Pulse Resp BP Pulse Ox 98.9 F 73 16 130/83 95 02/07/18 14:30 02/07/18 14:30 02/07/18 14:30 02/07/18 14:30 02/07/18 14:30 Intake and Output: 02/07/18 02/07/18 06:59 18:59 Intake Total 490 Output Total 400 Balance 90 - Medications Medications: Current Medications Acetaminophen (Tylenol 325mg Tab) 650 mg PO Q6H PRN PRN Reason: Pain, moderate (4-7) Albuterol/Ipratropium (Duoneb 3 Mg/0.5 Mg (3 Ml) Ud) 3 ml IH [id number] [facility] Last Admin: 02/07/18 13:56 Dose: 3 ml Arformoterol Tartrate (Brovana) 15 mcg IH [id number] [facility] Last Admin: 02/07/18 07:12 Dose: 15 mcg Budesonide (Pulmicort Respules) 0.5 mg IH [id number] [facility] Last Admin: 02/07/18 07:12 Dose: 0.5 mg Famotidine (Pepcid) 20 mg PO BID [facility] Last Admin: 02/07/18 09:18 Dose: 20 mg Heparin Sodium (Porcine) (Heparin) 5,000 units SC Q12 ANOOP PRN Reason: Protocol Last Admin: 02/07/18 09:17 Dose: 5,000 units Nicotine (Nicoderm Cq) 1 patch TD DAILY [facility] Last Admin: 02/07/18 09:18 Dose: 1 patch Oxycodone/Acetaminophen (Percocet 5/325 Mg Tab) 1 tab PO Q4H PRN PRN Reason: Pain, moderate (4-7) Stop: 02/09/18 22:17 Last Admin: 02/07/18 12:43 Dose: 1 tab - Labs Labs: 02/07/18 06:30 02/07/18 06:30 PT 13.1 SECONDS 02/07/18 06:30 INR 1.14 02/07/18 06:30 APTT 30.2 Seconds 02/07/18 06:30 - Constitutional Appears: No Acute Distress - Head Exam Head Exam: ATRAUMATIC, NORMOCEPHALIC - Eye Exam Eye Exam: EOMI, PERRL Pupil Exam: NORMAL ACCOMODATION - Respiratory Exam Respiratory Exam: Decreased Breath Sounds - Cardiovascular Exam Cardiovascular Exam: REGULAR RHYTHM, +S1, +S2 - GI/Abdominal Exam GI & Abdominal Exam: Soft. absent: Distended, Tenderness - Extremities Exam Extremities Exam: Normal Inspection - Neurological Exam Neurological Exam: Alert, Awake, Oriented x3 - Psychiatric Exam Psychiatric exam: Anxious - Skin Skin Exam: Normal Color - Additional Findings Additional findings: Tenderness to palpation along mid to lateral ribs on Left side. Assessment and Plan - Assessment and Plan (Free Text) Assessment: 57 y/o M with PMHx COPD, tobacco use, anxiety, presented to ED s/p fall on left side with residual fractures admitted for leukocytosis. Plan: Pleural Blood Effusion - CT chest: moderate left pleural blood effusion - likely traumatic secondary to rib fractures secondary to mechanical fall - repeat CT chest in 1 month - Pulm consulted - Dr. Zambrano Leukocytosis - resolved - Likely etiology: stress demargination s/p fall - WBC 22.5 on admission, now 9.8 - will continue to monitor Shortness Of Breath - ABG: HCO3 30.2, CO2 31.8 - O2 sat 96-97% on room air - Pt continues to complain of SOB- likely secondary to pain - Duoneb q6h prn - Brovana 15 q12 - Pulmicort 0.5 q12 - Pulmonology consulted - Dr. Zambrano Left Rib Fractures - CXR: Fractures Left T7-T9 ribs laterally with mild displacement. - CT Chest: small pneumothorax in left base- monitor - Percocet for pain management - PT/OT Renal Mass - CT chest: exophytic renal hypodense mass compatible with adenoma - Renal U/S: R gayle previously removed, chronic hematoma measuring 6 x 4 x 5.5 cm Anxiety - Psychiatry consult Tobacco use disorder - Nicoderm patch DVT ppx: Heparin 5,000mg q 12 GI ppx: Pepcid bid Case discussed with and reviewed by Dr. Diana Donis. <Diana Donis R - Last Filed: 02/09/18 08:34> Objective - Vital Signs/Intake and Output Vital Signs (last 24 hours): Temp Pulse Resp BP Pulse Ox 97.4 F L 77 18 138/96 H 96 02/08/18 14:00 02/08/18 14:00 02/08/18 14:00 02/08/18 14:00 02/08/18 14:00 - Labs Labs: 02/08/18 06:30 02/08/18 06:30 PT 13.1 SECONDS (9.4-12.5) 02/07/18 06:30 INR 1.14 02/07/18 06:30 APTT 30.2 Seconds (25.1-36.5) 02/07/18 06:30 Attending/Attestation - Attestation I have personally seen and examined this patient.: Yes I have fully participated in the care of the patient.: Yes I have reviewed all pertinent clinical information, including history, physical exam and plan: Yes Notes (Text): Patient seen and examined by me at 12:20PM with resident 02/07/18. Case including HPI, physical exam, and assessment and plan discussed with resident. Agree with above with following additions/corrections. Patient states he is upset. He feels the nurse is not helping him shower or providing him with information. Patient states that he is having a hard time taking in deep breaths. Complains of pain at left rib site. States pain is worsened with coughing, deep breaths, and movement. Pain is constant and does not radiate. Patient also states that he is upset because he is disabled and can not get health insurance. He denies chest pain or palpitations. No nausea, vomiting, or abdominal pain. no headaches or dizziness. No fevers or chills. No dysuria. Physical exam: Gen: Awake and alert sitting up in bed in no acute distress HEENT: Normocephalic, atraumatic. Extraocular muscles intact, pupils equal reactive. Oropharynx is pink and moist, no pharyngeal erythema or exudate appreciated. Neck is supple. Cardiovascular: Normal rhythm. Normal S1, S2. No murmurs, rubs, or gallops appreciated Pulmonary: Normal respiratory effort. Decreased breath sounds. No rhonchi, rales or wheezing appreciated. Gastrointestinal: Soft, nontender, nondistended, positive bowel sounds all 4 quadrants, no guarding. Musculoskeletal: Moves all extremities, no calf tenderness. No edema appreciated. Positive left anterior rib tenderness. Central nervous system: AAO x 3. CN 2-12 grossly intact Dermatologic: Skin warm and dry Assessment and plan: Patient is a 57-year-old male with past medical history significant for COPD and anxiety that presented to the emergency room with left rib pain status post fall and shortness of breath. 1. Left rib fracture status post mechanical fall. Left rib x-rays per radiologist shows fractures are seen of the left lateral aspect of the T7-9 ribs. Lumbar x-ray per radiologist shows mild compression deformity of L1 and disc degeneration of L1 and L2. Chest CT per radiologist shows notable posterior left displaced rib fractures with contiguous mild/moderate left pleural blood containing effusion, tiny left basal pneumothorax, trace posterior left subcutaneous emphysema; interval increased size conspicuity of an exophytic left renal hypodense mass. Pulmonary consulted, follow-up recommendations. Continue with pain management. Patient's O2 saturation is in the upper 90s on room air. O2 via nasal cannula as needed. 2. COPD. Shortness of breath. Shortness of breath likely secondary to rib fractures. Continue Brovana, budesonide, and nebulizer treatments. 3. Leukocytosis. Resolved. Likely reactive. Blood cultures negative so far. Urine culture pending. Continue to monitor 4. Renal mass. Renal ultrasound ordered, follow-up results 5. Anxiety. Psychiatry consulted, recommendations appreciated. Patient is not a candidate for benzodiazepines. No current treatment recommended. 6. Tobacco abuse. Patient counseled on cessation 7. Patient is a full code Case was discussed in detail with the patient regarding current diagnosis and treatment plan. All questions answered
--- NOTE | 2018-02-07 16:48 | CP.PCM.CON ---
History of Present Illness - History of Present Illness History of Present Illness: PULMONARY CONSULT NOTE REASON FOR CONSULT: Pleural effusion HPI Patient is 57yo male with PMHx of COPD, active smoker 45pk years, on disability , presented to the hospital after sustaining a fall while trying to pain in the bathroom, falling on his L side, enduring fractures of the left T7-T9 ribs laterally with mild displacement. Pt had CT chest done with shows mild L pleural effusion, likely traumatic/hemorrhagic. Pt reports difficulty taking in full deep breath. Pt denies fever, chills, cough, palpitations, JANSEN, dizziness. Of note pt reports he has COPD, and has not been able to afford Symbicort 2/2 insurance issues. Pmhx: COPD All: NKDA Surghx: R Nephrectomy Famhx: Meds: as per EMR Former EtOH abuse disabled. Review of Systems - Review of Systems Review of Systems: As per HPI Past Patient History - Infectious Disease Hx of Infectious Diseases: None - Past Social History Smoking Status: Heavy Smoker > 10 Cigarettes Daily Drugs: Cannabis - CARDIAC Hx Cardiac Disorders: No - PULMONARY Hx Respiratory Disorders: Yes Hx Chronic Obstructive Pulmonary Disease (COPD): Yes - NEUROLOGICAL Hx Neurological Disorder: No - HEENT Hx HEENT Problems: No - RENAL Hx Chronic Kidney Disease: Yes Other/Comment: R NEPHRECTOMY - ENDOCRINE/METABOLIC Hx Endocrine Disorders: No - HEMATOLOGICAL/ONCOLOGICAL Hx Blood Disorders: No - INTEGUMENTARY Hx Dermatological Problems: No - MUSCULOSKELETAL/RHEUMATOLOGICAL Hx Musculoskeletal Disorders: No - GASTROINTESTINAL Hx Gastrointestinal Disorders: No - GENITOURINARY/GYNECOLOGICAL Hx Genitourinary Disorders: No - PSYCHIATRIC Hx Psychophysiologic Disorder: Yes Hx Anxiety: Yes Hx Substance Use: No - SURGICAL HISTORY Other/Comment: R NEPHRECTOMY - ANESTHESIA Hx Anesthesia: Yes Hx Anesthesia Reactions: No Meds Allergies/Adverse Reactions: Allergies Allergy/AdvReac Type Severity Reaction Status Date / Time No Known Allergies Allergy Verified 02/06/18 16:00 - Medications Medications: Current Medications Acetaminophen (Tylenol 325mg Tab) 650 mg PO Q6H PRN PRN Reason: Pain, moderate (4-7) Albuterol/Ipratropium (Duoneb 3 Mg/0.5 Mg (3 Ml) Ud) 3 ml IH [id number] ANOOP Last Admin: 02/07/18 13:56 Dose: 3 ml Arformoterol Tartrate (Brovana) 15 mcg IH [id number] [facility] Last Admin: 02/07/18 07:12 Dose: 15 mcg Budesonide (Pulmicort Respules) 0.5 mg IH [id number] [facility] Last Admin: 02/07/18 07:12 Dose: 0.5 mg Famotidine (Pepcid) 20 mg PO BID [facility] Last Admin: 02/07/18 09:18 Dose: 20 mg Heparin Sodium (Porcine) (Heparin) 5,000 units SC Q12 [facility] PRN Reason: Protocol Last Admin: 02/07/18 09:17 Dose: 5,000 units Nicotine (Nicoderm Cq) 1 patch TD DAILY [facility] Last Admin: 02/07/18 09:18 Dose: 1 patch Oxycodone/Acetaminophen (Percocet 5/325 Mg Tab) 1 tab PO Q4H PRN PRN Reason: Pain, moderate (4-7) Stop: 02/09/18 22:17 Last Admin: 02/07/18 12:43 Dose: 1 tab Physical Exam - Constitutional Appears: Non-toxic, Toxic, No Acute Distress - Head Exam Head Exam: NORMAL INSPECTION - Eye Exam Eye Exam: Normal appearance - ENT Exam ENT Exam: Mucous Membranes Moist - Neck Exam Neck exam: Positive for: Full Rom - Respiratory Exam Respiratory Exam: Clear to Auscultation Bilateral, NORMAL BREATHING PATTERN - Cardiovascular Exam Cardiovascular Exam: REGULAR RHYTHM, +S1, +S2 - GI/Abdominal Exam GI & Abdominal Exam: Normal Bowel Sounds, Soft - Extremities Exam Extremities exam: Positive for: normal inspection - Neurological Exam Neurological exam: Alert, Oriented x3 - Psychiatric Exam Psychiatric exam: Anxious - Skin Skin Exam: Normal Color, Warm Results - Vital Signs Recent Vital Signs: Last Vital Signs Temp 98.9 F 02/07/18 14:30 Pulse 73 02/07/18 14:30 Resp 16 02/07/18 14:30 BP 130/83 02/07/18 14:30 Pulse Ox 95 02/07/18 14:30 - Labs Result Diagrams: 02/07/18 06:30 02/07/18 06:30 Labs: Laboratory Results - last 24 hr 02/06/18 02/07/18 02/07/18 20:30 00:35 06:30 WBC 9.8 D RBC 4.68 Hgb 14.7 D Hct 42.9 MCV 91.7 MCH 31.4 MCHC 34.3 RDW 13.0 Plt Count 222 MPV 10.9 Gran % 61.1 Lymph % (Auto) 20.1 L [place] % (Auto) 10.9 H Eos % (Auto) 7.2 H Baso % (Auto) 0.7 Gran # 5.96 Lymph # (Auto) 2.0 [place] # (Auto) 1.1 H Eos # (Auto) 0.7 Baso # (Auto) 0.07 PT INR APTT pO2 37 VBG pH 7.38 VBG pCO2 51.0 VBG HCO3 30.2 H VBG Total CO2 31.8 H VBG O2 Sat (Calc) 78.4 H VBG Base Excess 3.9 H VBG Potassium 4.0 Sodium 137.0 Chloride 103.0 Glucose 119 H Lactate 1.4 FiO2 21.0 Potassium Carbon Dioxide Anion Gap BUN Creatinine Est GFR ( Amer) Est GFR (Non-Af Amer) Random Glucose Calcium Phosphorus Magnesium Total Bilirubin AST ALT Alkaline Phosphatase Total Protein Albumin Globulin Albumin/Globulin Ratio Venous Blood Potassium 4.0 Urine Color Meli Urine Appearance Clear Urine pH 6.0 Ur Specific [place] >= 1.030 Urine Protein 100 H Urine Glucose (UA) Negative Urine Ketones Trace H Urine Blood Negative Urine Nitrate Negative Urine Bilirubin Small H Urine Urobilinogen 1.0 H Ur Leukocyte Esterase Negative Urine RBC TEST NOT PERFORMED Urine WBC 5 - 10 Ur Epithelial Cells 10 - 12 02/07/18 02/07/18 06:30 06:30 WBC RBC Hgb Hct MCV MCH MCHC RDW Plt Count MPV Gran % Lymph % (Auto) [place] % (Auto) Eos % (Auto) Baso % (Auto) Gran # Lymph # (Auto) [place] # (Auto) Eos # (Auto) Baso # (Auto) PT 13.1 INR 1.14 APTT 30.2 pO2 VBG pH VBG pCO2 VBG HCO3 VBG Total CO2 VBG O2 Sat (Calc) VBG Base Excess VBG Potassium Sodium 139 Chloride 104 Glucose Lactate FiO2 Potassium 4.0 Carbon Dioxide 29 Anion Gap 11 BUN 14 Creatinine 0.9 Est GFR ( Amer) > 60 Est GFR (Non-Af Amer) > 60 Random Glucose 109 Calcium 9.0 Phosphorus 3.0 Magnesium 2.1 Total Bilirubin 0.6 AST 22 ALT 26 Alkaline Phosphatase 103 Total Protein 6.4 Albumin 3.6 Globulin 2.8 Albumin/Globulin Ratio 1.3 Venous Blood Potassium Urine Color Urine Appearance Urine pH Ur Specific [place] Urine Protein Urine Glucose (UA) Urine Ketones Urine Blood Urine Nitrate Urine Bilirubin Urine Urobilinogen Ur Leukocyte Esterase Urine RBC Urine WBC Ur Epithelial Cells - Imaging and Cardiology CT scan - chest Status: Image reviewed by me, Report reviewed by me Assessment & Plan - Assessment and Plan (Free Text) Assessment: 57yo male with PMHx of with fractures of the left T7-T9 ribs laterally with mild displacement, pleural effusion Pleural effusion COPD SOB CP fractures of the left T7-T9 ribs laterally with mild displacement - currently afebrile, HD stable, comfortable in NAD - pleural effusion likely traumatic - SOB likely 2/2 muskeloskeletal pain - will need repeat CT chest in 1 month - Symbicort 160/4.5 BID, Duonebs PRN - Nicotine Patch - Incentive Spirometry - pain control - outpatient pulm follow up - DVT ppx - OOB to chair
--- NOTE | 2018-02-07 22:06 | CON ---
Copied To: Jaz Bonilla MD Attending MD: Jaz Bonilla MD. DATE: 02/07/2018 HISTORY OF PRESENT ILLNESS: In short, the patient is a 57-year-old male who was admitted on the medical site, status post fall and fracture of the left T7 and T9 ribs and that is really with mild displacement. Psych consult was called for evaluation of anxiety. The patient has other multiple medical issues including COPD, anxiety, and history of alcohol use disorder. The patient is also chronic smoker as well as marijuana user. The patient was seen and examined today. The patient presented to be irritable and annoyed. The patient reported that he is not taking his medication as prescribed because he lost his Medicaid and he is upset about that. The patient was making an offensive statement that nobody cares about him. The patient used profanities while talking to this tech writer, but there is no aggression or agitation. The patient reported that he lost his insurance because his is working and household income is higher than it required for the Medicaid to be active. The patient expressed that he is very agitated because of that, but at the same time, the patient does not present to be agitated, aggressive, or psychotic. The patient denied history of suicidal attempts. The patient denied history of being admitted to the Psychiatric Inpatient Unit. The patient denied being hopeless or helpless. VITAL SIGNS: Reviewed. Temperature 98.4, pulse is 70, blood pressure 128/75, respirations 18, oxygen saturation is 95. MEDICATIONS: Reviewed. The patient is on DuoNeb, Brovana, Pulmicort, Pepcid, heparin, NicoDerm, and Percocet. LABORATORY DATA: Reviewed. WBC cells were elevated at 22.5 and it was on 02/06/2018; today, it is going down, 9.8. Coagulation reviewed. Blood gas reviewed. Chemistry reviewed. Urinalysis reviewed. MENTAL STATUS EXAMINATION: The patient appears to be alert and oriented, irritable, angry. Mood described as annoyed and angry. Affect was flat, mood congruent. Thought process coherent and goal directed. Thought content, the patient denied visual, auditory, or tactile hallucinations. Denied paranoid ideation. The patient denied thoughts of harming himself or others. Denied intent or plan. Insight and judgment seem to be fair. Impulses are well controlled. IMPRESSION: Rule out mood disorder and anxiety disorder due to general medical condition. PLAN: This tech writer offered Social Service consultation but the patient declined that offer. In regards to the anxiety and medications, the patient has history of falls, benzodiazepines is not indicated at the present moment. Serotonin reuptake inhibitors will take 4-6 weeks to start working. Moreover, the patient does not meet the criteria to initiate on serotonin reuptake inhibitors . All of the symptoms are related to the medical issues as well as social issues. If the patient wants to, [employer]ze [employer] need to be involved. Meanwhile, the patient is not suicidal, not homicidal, not psychotic. Should you have any questions, give me a call back. The patient is not in any imminent danger to self or others. This tech writer will sign off. Jaz Bonilla MD
[2018-02-08] MEDS: Albuterol-Ipratrop 3 mg / 0.5 (3 ml) UD IH SCH ×3 (01:40→13:49)
[2018-02-08] MEDS: Oxycodone/Acetaminophen 5/325 mg Tab PO PRN ×2 (04:32→12:53)
--- NOTE | 2018-02-08 06:56 | CP.PCM.PN ---
Objective - Vital Signs/Intake and Output Vital Signs (last 24 hours): Temp Pulse Resp BP Pulse Ox 97.5 F L 78 20 138/89 95 02/07/18 23:14 02/07/18 23:14 02/07/18 23:14 02/07/18 23:14 02/07/18 23:14 Intake and Output: 02/07/18 02/08/18 18:59 06:59 Intake Total 300 Output Total 1200 Balance -900 - Medications Medications: Current Medications Acetaminophen (Tylenol 325mg Tab) 650 mg PO Q6H PRN PRN Reason: Pain, moderate (4-7) Albuterol/Ipratropium (Duoneb 3 Mg/0.5 Mg (3 Ml) Ud) 3 ml IH [id number] [facility] Last Admin: 02/08/18 01:40 Dose: 3 ml Arformoterol Tartrate (Brovana) 15 mcg IH [id number] [facility] Last Admin: 02/07/18 19:40 Dose: 15 mcg Budesonide (Pulmicort Respules) 0.5 mg IH [id number] [facility] Last Admin: 02/07/18 19:40 Dose: 0.5 mg Famotidine (Pepcid) 20 mg PO BID [facility] Last Admin: 02/07/18 18:11 Dose: 20 mg Heparin Sodium (Porcine) (Heparin) 5,000 units SC Q12 [facility] PRN Reason: Protocol Last Admin: 02/07/18 23:49 Dose: Not Given Nicotine (Nicoderm Cq) 1 patch TD DAILY [facility] Last Admin: 02/07/18 09:18 Dose: 1 patch Oxycodone/Acetaminophen (Percocet 5/325 Mg Tab) 1 tab PO Q4H PRN PRN Reason: Pain, moderate (4-7) Stop: 02/09/18 22:17 Last Admin: 02/08/18 04:32 Dose: 1 tab - Labs Labs: 02/07/18 06:30 02/07/18 06:30 PT 13.1 SECONDS 02/07/18 06:30 INR 1.14 02/07/18 06:30 APTT 30.2 Seconds 02/07/18 06:30
[2018-02-08 07:06] LABS: BASO # 0.07 K/mm3 (0.0-2.0); BASO % 0.8 % (0.0-3.0); EOS # 0.4 (0.0-0.7); EOS % 4.5 % (1.5-5.0); GRAN # 5.62 (1.4-6.5); GRAN % 64.2 % (50.0-68.0); HEMOGLOBIN 14.3 g/dL (14.0-18.0); LYMPH # 1.9 (1.2-3.4); LYMPH % 21.3 % (22.0-35.0); MEAN CELL VOLUME 91.4 fl (80.0-105.0); MEAN CORPUSCULAR HEMOGLOBIN 31.6 pg (25.0-35.0); MEAN CORPUSCULAR HGB CONC 34.5 g/dl (31.0-37.0); MEAN PLATELET VOLUME 11.1 fl (7.0-11.0); MONO # 0.8 (0.1-0.6); MONO % 9.2 % (1.0-6.0); RBC 4.53 10^6/uL (3.5-6.1); WHITE BLOOD COUNT 8.7 10^3/ul (4.5-11.0)
[2018-02-08] MEDS: Budesonide 0.5 mg/2 ml Inhal Susp UD IH SCH (07:07)
[2018-02-08] MEDS: Arformoterol 15 mcg/2 ml Inh Sol IH SCH (07:07)
[2018-02-08 07:31] LABS: ALB/GLOB RATIO 1.3 (1.1-1.8); ALBUMIN 3.6 g/dL (3.0-4.8); ALT/SGPT 21 U/L (7-56); AST/SGOT 18 U/L (17-59); BLOOD UREA NITROGEN 8 mg/dL (7-21); CALCIUM 8.8 mg/dL (8.4-10.5); GFR AFRICAN-AMERICAN > 60; GFR NON-AFRICAN AMERICAN > 60
[2018-02-08 14:01] LABS: PARTIAL THROMBOPLASTIN TIME 30.2 Seconds (25.1-36.5); PROTHROMBIN TIME 13.1 SECONDS (9.4-12.5)
[2018-02-08 14:34] LABS: PROTHROMBIN TIME 11.8 SECONDS (9.4-12.5)
[2018-02-08 14:59] VITALS: BP 138/96; PULSE 77; RESP 18; TEMP 97.4; O2SAT 96
--- NOTE | 2018-02-08 18:36 | CP.PCM.DIS ---
Provider - Provider Date of Admission: 02/06/18 20:23 Attending physician: Diana Donis DO Consults: Pulmonology Psychiatry Time Spent in preparation of Discharge (in minutes): 70 Hospital Course - Lab Results Lab Results: Micro Results 02/06/18 20:30 Urine Urine Culture - Final No Growth (<1,000 CFU/ML) 02/06/18 21:08 Blood-Venous Blood Culture - Preliminary NO GROWTH AFTER 24 HOURS 02/06/18 20:30 Blood-Venous Blood Culture - Preliminary NO GROWTH AFTER 24 HOURS Most Recent Lab Values WBC 8.7 10^3/ul (4.5-11.0) 02/08/18 06:30 RBC 4.53 10^6/uL (3.5-6.1) 02/08/18 06:30 Hgb 14.3 g/dL (14.0-18.0) 02/08/18 06:30 Hct 41.4 % (42.0-52.0) L 02/08/18 06:30 MCV 91.4 fl (80.0-105.0) 02/08/18 06:30 MCH 31.6 pg (25.0-35.0) 02/08/18 06:30 MCHC 34.5 g/dl (31.0-37.0) 02/08/18 06:30 RDW 13.0 % (11.5-14.5) 02/08/18 06:30 Plt Count 213 10^3/uL (120.0-450.0) 02/08/18 06:30 MPV 11.1 fl (7.0-11.0) H 02/08/18 06:30 Gran % 64.2 % (50.0-68.0) 02/08/18 06:30 Lymph % (Auto) 21.3 % (22.0-35.0) L 02/08/18 06:30 [place] % (Auto) 9.2 % (1.0-6.0) H 02/08/18 06:30 Eos % (Auto) 4.5 % (1.5-5.0) 02/08/18 06:30 Baso % (Auto) 0.8 % (0.0-3.0) 02/08/18 06:30 Gran # 5.62 (1.4-6.5) 02/08/18 06:30 Lymph # (Auto) 1.9 (1.2-3.4) 02/08/18 06:30 [place] # (Auto) 0.8 (0.1-0.6) H 02/08/18 06:30 Eos # (Auto) 0.4 (0.0-0.7) 02/08/18 06:30 Baso # (Auto) 0.07 K/mm3 (0.0-2.0) 02/08/18 06:30 PT 13.1 SECONDS (9.4-12.5) 02/07/18 06:30 INR 1.14 02/07/18 06:30 APTT 30.2 Seconds (25.1-36.5) 02/07/18 06:30 pO2 37 mm/Hg (30-55) 02/07/18 00:35 VBG pH 7.38 (7.32-7.43) 02/07/18 00:35 VBG pCO2 51.0 (40-60) 02/07/18 00:35 VBG HCO3 30.2 mmol/l (21-28) H 02/07/18 00:35 VBG Total CO2 31.8 mmol.L (22-28) H 02/07/18 00:35 VBG O2 Sat (Calc) 78.4 % (40-65) H 02/07/18 00:35 VBG Base Excess 3.9 mmol/L (0.0-2.0) H 02/07/18 00:35 VBG Potassium 4.0 mmol/L (3.6-5.2) 02/07/18 00:35 Sodium 137.0 mmol/L (132-148) 02/07/18 00:35 Chloride 103.0 mmol/L (98-107) 02/07/18 00:35 Glucose 119 mg/dl (75-110) H 02/07/18 00:35 Lactate 1.4 mmol/L (0.7-2.1) 02/07/18 00:35 FiO2 21.0 % 02/07/18 00:35 Sodium 140 mmol/L (132-148) 02/08/18 06:30 Potassium 3.8 mmol/L (3.6-5.0) 02/08/18 06:30 Chloride 104 mmol/L (98-107) 02/08/18 06:30 Carbon Dioxide 28 mmol/L (21-33) 02/08/18 06:30 Anion Gap 12 (10-20) 02/08/18 06:30 BUN 8 mg/dL (7-21) 02/08/18 06:30 Creatinine 0.7 mg/dl (0.8-1.5) L 02/08/18 06:30 Est GFR ( Amer) > 60 02/08/18 06:30 Est GFR (Non-Af Amer) > 60 02/08/18 06:30 Random Glucose 114 mg/dL (70-110) H 02/08/18 06:30 Calcium 8.8 mg/dL (8.4-10.5) 02/08/18 06:30 Phosphorus 3.0 mg/dL (2.5-4.5) 02/07/18 06:30 Magnesium 2.1 mg/dL (1.7-2.2) 02/07/18 06:30 Total Bilirubin 0.7 mg/dL (0.2-1.3) 02/08/18 06:30 AST 18 U/L (17-59) 02/08/18 06:30 ALT 21 U/L (7-56) 02/08/18 06:30 Alkaline Phosphatase 110 U/L (38-126) 02/08/18 06:30 Total Protein 6.5 g/dL (5.8-8.3) 02/08/18 06:30 Albumin 3.6 g/dL (3.0-4.8) 02/08/18 06:30 Globulin 2.8 gm/dL 02/08/18 06:30 Albumin/Globulin Ratio 1.3 (1.1-1.8) 02/08/18 06:30 Venous Blood Potassium 4.0 mmol/L (3.6-5.2) 02/07/18 00:35 Urine Color Meli (YELLOW) 02/06/18 20:30 Urine Appearance Clear (CLEAR) 02/06/18 20:30 Urine pH 6.0 (4.7-8.0) 02/06/18 20:30 Ur Specific [place] >= 1.030 (1.005-1.035) 02/06/18 20:30 Urine Protein 100 mg/dL (<30 mg/dL) H 02/06/18 20:30 Urine Glucose (UA) Negative mg/dL (NEGATIVE) 02/06/18 20:30 Urine Ketones Trace mg/dL (NEGATIVE) H 02/06/18 20:30 Urine Blood Negative (NEGATIVE) 02/06/18 20:30 Urine Nitrate Negative (NEGATIVE) 02/06/18 20:30 Urine Bilirubin Small (NEGATIVE) H 02/06/18 20:30 Urine Urobilinogen 1.0 E.U./dL (<1 E.U./dL) H 02/06/18 20:30 Ur Leukocyte Esterase Negative Tonya/uL (NEGATIVE) 02/06/18 20:30 Urine RBC TEST NOT PERFORMED 02/06/18 20:30 Urine WBC 5 - 10 /hpf (0-6) 02/06/18 20:30 Ur Epithelial Cells 10 - 12 /hpf (0-5) 02/06/18 20:30 - Hospital Course Hospital Course: Mr. 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 He fell backwards on his left side and hit the tub. He had felt severe pain in his ribs since the fall that is worsened with deep breathing and movement. He reported no loss of consciousnesses or penetrating trauma. He also complains of difficulty breathing which he attributes to his COPD. He reported associated cough and sputum. He claimed his COPD is uncontrolled because he cannot afford his medications and does not have insurance. He also complained of discomfort in his R groin area which he attributes to a R inguinal hernia for 1 year. He denied fever, chills, headache , chest pain, shortness of breath, nausea, vomiting, dysuria, constipation or diarrhea. He smokes 1ppd x 47 years, and smokes marijuana regularly for anxiety attacks. In the ED, he had a WBC count of 22.5. He was given Vancomycin and Zosyn. He was admitted for leukocytosis. He received a CXR that showed fractures of ribs T7-T9 on the left, with mild displacement. No pneumothorax was found. Upon admission, he was given percocet for the pain, for his COPD. The following day, the patient was very frustrated and anxious with his care and lack of insurance. He claimed his left sided rib pain persisted at a 10 out of 10. He also complained of shortness of breath, which was at his baseline. Physical exam was remarkable for tenderness on the left sided ribs and decreased breath sounds in both lung smalls. WBC decreased to 9.4, and vitals were stable. A CT chest showed a moderate left sided pleural effusion of blood and a small pneumothorax at the base of the left lung. It also showed an exophytic renal hypodense mass. A renal U/S was ordered which revealed a chronic hematoma. Pulmonology was consulted and recommended continuation of medications, incentive spirometry, and follow up in the outpatient setting. Psychiatry was consulted due to anxiety. No immediate recommendations were given at this time, as the patient was a fall risk and such risk would be increased with a fast-acting anxiolytic. The following day, the patient reported persistence of his rib pain and shortness of breath. Physical exam was remarkable for tenderness in the left ribs and improved breath sounds b/l. Vitals were stable, and WBC decreased to 8.7. PT evaluated the patient and recommended home with no further services. Follow up appointment for Primary Care was made for the patient for 02/17/18 at 10:30 am. The discharge plan and summary of care was communicated to the patient. Cessation of tobacco use was advised. Patient understood instructions and was agreeable to plan. Discharge Exam - Head Exam Head Exam: ATRAUMATIC, NORMOCEPHALIC - Eye Exam Eye Exam: EOMI, PERRL Pupil Exam: NORMAL ACCOMODATION - ENT Exam ENT Exam: Mucous Membranes Moist - Respiratory Exam Respiratory Exam: Chest Wall Tenderness, NORMAL BREATHING PATTERN. absent: Rales, Rhonchi, Wheezes, Respiratory Distress - Cardiovascular Exam Cardiovascular Exam: REGULAR RHYTHM, +S1, +S2 - GI/Abdominal Exam GI & Abdominal Exam: Normal Bowel Sounds, Soft. absent: Distended, Firm - Extremities Exam Extremities exam: normal inspection - Neurological Exam Neurological exam: Alert, Oriented x3 - Skin Skin Exam: Normal Color Discharge Plan - Discharge Medications Prescriptions: Arformoterol [Brovana] 15 mcg IH [id number] 30 Days Budesonide [Pulmicort Respules] 0.5 mg IH [id number] 30 Days traMADol [Ultram] 25 mg PO Q8H PRN #21 tab PRN Reason: Pain, Severe (8-10) - Follow Up Plan Condition: FAIR Disposition: HOME/ ROUTINE Patient education suggested?: Yes Instructions: Rib Fractures in Adults, Smoking: Not Just Harmful to Your Lungs and Heart, Quitting Smoking, Leukocytosis (DC), Leukocytosis (GEN) Additional Instructions: Patient to start taking new medications as prescribed: -Brovana 15mcg inhaled every 12 hours -Pulmicort 180mcg inhaled every 12 hours Patient to follow up with [facility] in [place] on Tuesday at 10:30am Patient to also follow up with a animal humane agent supervisor within 2 weeks (please get referral from the [facility]). You will need repeat CAT scan of the chest done in one month. Patient counseled thoroughly on the importance of tobacco cessation. If symptoms persist or worsen patient to return to the Emergency Room immediately. Instructions discussed in detail with patient who understands and agrees.
== END 2018-02-08 18:16 | disposition home or self-care (01) ==
LOC: ED 15:42 → ERH 20:23 → 5RNO 23:15
PROVIDERS: ADMIT Hospitalist; ATTEND Hospitalist
DX: S22.42XA Multiple fractures of ribs, left side, initial encounter for closed fracture (principal); S27.0XXA Traumatic pneumothorax, initial encounter; J90 Pleural effusion, not elsewhere classified; F41.1 Generalized anxiety disorder; F12.90 Cannabis use, unspecified, uncomplicated; F10.21 Alcohol dependence, in remission; F17.210 Nicotine dependence, cigarettes, uncomplicated; J44.9 Chronic obstructive pulmonary disease, unspecified; N18.9 Chronic kidney disease, unspecified; K40.90 Unilateral inguinal hernia, without obstruction or gangrene, not specified as recurrent; D72.829 Elevated white blood cell count, unspecified; Z90.5 Acquired absence of kidney; W07.XXXA Fall from chair, initial encounter; W18.09XA Striking against other object with subsequent fall, initial encounter; Y92.002 Bathroom of unspecified non-institutional (private) residence as the place of occurrence of the external cause; Y93.E9 Activity, other interior property and clothing maintenance
CPT/HCPCS: 36415; 71101; 71250; 72110; 76770; 80053; 81001; 82803; 83735; 84100; 85025; 85610; 85730; 87040; 87086; 94640; 94760; 96365; 96372; 96375; 97116; 97161; 99285; G0378; G8978; G8979; G8980; J1644; J1885; J2060; J2543

== ENCOUNTER 2018-10-26 14:27 | Outpatient (CLI) | payer MEDICARE, OTHER | END 2018-10-26 14:28 | disposition home or self-care (01) | LOC: LAB 14:27 ==